=== PATIENT | female | born 1980 | race Caucasian/White ===

== ENCOUNTER 2022-04-28 09:30 | Outpatient (CLI) | payer MEDICAID, SELFPAY ==
--- NOTE | 2022-04-28 09:45 | CRLHL7_ITS ---
For Patients: As a result of the Century Cures Act, medical imaging exams and procedure reports are released immediately into your electronic medical record. You may view this report before your referring provider. If you have questions, please contact your health care provider. INDICATION: Pelvic pain, history of fibroids. TECHNIQUE: Ultrasound pelvis transvaginal for better assessment or to better visualize the endometrium. Real-time sonographic images with spectral and color Doppler imaging of the ovaries were obtained. COMPARISON: None. FINDINGS: Uterus: 7 x 4.4 x 3.7 cm. Normal echotexture of the myometrium. Multiple uterine fibroids. Large right-sided pedunculated fibroid correlates with area of pain and measures 5.2 x 6.0 x 3.2 cm. There are additional intramural and subserosal fibroids. Posterior uterine body intramural fibroid measures 1.5 x 1.5 x 1.3 cm. There are 2 anterior subserosal uterine body fibroids measuring up to 9 and 12 mm in greatest diameter. Endometrium: Transvaginal imaging was performed to better evaluate the endometrium. Endometrial thickness measures 3 mm. No sign of endometrial mass or fluid. Right ovary measures 2.6 x 2.2 x 1.3 cm and left ovary measures 2.2 x 1.6 x 1.4 cm. Left ovarian calcifications. No ovarian or adnexal masses. Normal blood flow in both ovaries. Cul-de-sac: No significant free fluid. IMPRESSION: Multiple uterine fibroids including large right pedunculated fibroid measuring 5.2 x 6.0 x 3.2 cm. Dictated by Tyler Angela MD @ 04/28/2022 10:40:33 AM (Electronically Signed)
== END 2022-04-28 09:31 | disposition home or self-care (01) ==
LOC: US 09:31
PROVIDERS: Visit Provider Registered Nurse
DX: R10.2 Pelvic and perineal pain (principal); D25.9 Leiomyoma of uterus, unspecified; D25.1 Intramural leiomyoma of uterus
CPT/HCPCS: 76830; 76856; 93976

== ENCOUNTER 2022-05-19 14:59 | Outpatient (CLI) | payer MEDICAID, SELFPAY ==
[2022-05-19 18:00] LABS: Albumin* 4.5 g/dL (3.3-5.0); Chloride* 104 mmol/L (96-114); Potassium* 4.2 mmol/L (3.6-5.1); Sodium* 138 mmol/L (135-149)
[2022-05-19 18:02] LABS: Carbon Dioxide* 27 mmol/L (20-32); Cholesterol* 150 mg/dL (90-199); Creatinine* 0.6 mg/dL (0.5-1.5); Estimated Glomerular Filt Rate 116 ml/min
[2022-05-19 18:03] LABS: Alanine Aminotransferase* 19 U/L (4-35); Alkaline Phosphatase* 50 U/L (40-150); Aspartate Amino Transferase* 27 U/L (12-35); Bilirubin Total* 0.3 mg/dL (0.1-1.5); Blood Urea Nitrogen* 8 mg/dL (5-24); Calcium* 9.7 mg/dL (8.4-10.6); Glucose* 104 mg/dL (60-115); HDL Cholesterol* 50 mg/dL (>=50); LDL Cholesterol Calculated 84 mg/dL (<100); Triglycerides* 78 mg/dL (40-149)
== END 2022-05-19 15:00 | disposition home or self-care (01) ==
PROVIDERS: PCP Family Medicine; Visit Provider Family Medicine
DX: Z01.419 Encounter for gynecological examination (general) (routine) without abnormal findings (principal); R53.83 Other fatigue; F41.9 Anxiety disorder, unspecified; R00.2 Palpitations; Z13.6 Encounter for screening for cardiovascular disorders; N94.6 Dysmenorrhea, unspecified; D25.9 Leiomyoma of uterus, unspecified
CPT/HCPCS: 80053; 80061; 84443